=== PATIENT | male | born 1940 | race Caucasian/White ===

== ENCOUNTER → 2017-03-22 | Outpatient (CLI) | payer OTHER, MEDICARE ==
[~2017-03-22] VITALS: Ht 177.8 cm; Wt 58.3 kg
[~2017-03-22] MED LIST: AVAPRO300 MG PO; CARDURA4 MG PO; CENTRUM SILVER1 EAC2 PO; CLOBETASOL EMOL15 GM TP; EYE PROMISE RESTORE; IRON PO; KETOCONAZOLE60 GM TP; METFORMIN HCL500 MG PO; NORVASC10 MG PO; OSTEO BI-FLEX1 EAC1 PO; PLAVIX 75 MG TA75 M1 PO; PROTONIX40 M1 PO; VITAMIN D1000 UNI1 PO; VITAMINC500 PO
--- NOTE | ~2017-03-22 | HPC ---
[facility] [place] [place] [address] PAIN MANAGEMENT CONSULTATION Name: DAISY NOEL Room #: REG KERON Ureña#: [id number] Admission: 03/22/17 Attend Phys: Thor Degroot DO Discharge: Date of : 39 Report #: [id number] THIS REPORT FOR: //name// CC: YADIRA Degroot The patient is a pleasant 76-year-old gentleman typically treated for lumbar radiculopathy with transforaminal epidural injection at L4-L5 on the left. He had a single injection in August with 80% relief; had injection in December again with significant improvement, per the patient 75% relief for 6 weeks with gradual return of symptoms. He is getting ready to travel to [place]. He spends majority of the summer in [place]. He notes pain is continuing 4-10, low back, left buttock and thigh. PHYSICAL EXAMINATION: Modestly antalgic gait, positive straight leg raise on the left. Vital signs stable. Long discussion with the patient today about therapeutic options. He is loathe to take any opiate analgesics. He does have narrowing at L4-L5 down to about 7 mm on a quite dated MRI from 2006. After discussion today, we elected to proceed with left L4-L5 transforaminal epidural injection today. I will see him back in the fall when he returns from [place] if and when symptoms recur. We will get an MRI of the lumbar spine and at least get a surgical opinion at that time. ASSESSMENT: Symptomatic lumbar radiculopathy. PROCEDURE NOTE: Left L4-L5 transforaminal epidural injection under fluoroscopy. The patient has been off Plavix for 7 days. The patient is to resume Plavix tomorrow. PROCEDURE NOTE: After both written and informed consent was obtained including risk of spinal cord damage, infection, increased pain and paralysis, the patient agreed to proceed. The patient was taken to the fluoroscopy suite, placed in a prone position with appropriate abdominal bolstering. After sterile prep with ChloraPrep and sterile drape, a skin wheal with 1% Xylocaine was raised. A 22 gauge 4-1/2 inch epidural Tuohy needle was inserted. From an oblique approach into the posterior-superior aspect of the left L4-L5 neural foramen with continuous pressure on the glass syringe plunger for loss of resistance. Glass syringe was filled with 2 cc of 0.1 Xylocaine. The glass loss of resistance syringe was removed. A low volume extension tubing was connected, negative aspiration was accomplished for cerebrospinal fluid or blood. 1 mL of Omnipaque was injected which showed spread both within the epidural space and laterally along the nerve root. This was followed with 80 mg of triamcinolone plus 1 mL of 1.5% preservative-free Xylocaine. Needle was partially withdrawn, 0.5 mL of Xylocaine was injected to clear the needle and the needle was removed. The [address] [address] PAIN MANAGEMENT CONSULTATION Name: DAISY NOEL Room #: REG KERON Ureña#: [id number] Admission: 03/22/17 Attend Phys: Thor Degroot DO Discharge: Date of : 39 Report #: [id number] was cleansed, band-aid was applied. The patient was allowed to ambulate to the recovery room, discharged in good and stable condition. By: [id number] Thor Degroot DO /fabián
[2017-03-22 09:26] VITALS: BP 144/69
== END ==
LOC: PAIN 02-15 14:30
DX: M54.16 Radiculopathy, lumbar region (principal); I10 Essential (primary) hypertension; F17.210 Nicotine dependence, cigarettes, uncomplicated

== ENCOUNTER → 2020-10-08 | Outpatient (CLI) | payer OTHER, MEDICARE ==
[~2020-10-08] VITALS: Ht 152.4 cm; Wt 62.6 kg
[~2020-10-08] MED LIST changes: +CARVEDILOL12.5 MG PO; +LIPITOR 40 MG T40 M1 PO
--- NOTE | ~2020-10-08 | HPC ---
[facility] [address] [place] [address] PAIN MANAGEMENT CONSULTATION Name: DAISY NOEL Room #: REG [facility]pt[facility]eepti[facility] [id number] Admission: 10/08/20 Attend Phys: Ba Degroot DO Discharge: Date of : 39 Report #: [id number] THIS REPORT FOR: cc: OMAR FERREIRA Physician not on staff Ba Degroot DO ~ CC: Ba Degroot Physician staff Keesha FERREIRA DATE OF SERVICE: 10/08/2020 REFERRING PHYSICIAN: Keesha Nicholas MD CHIEF COMPLAINT: Low back pain, bilateral buttock and posterolateral thigh pain. HISTORY OF PRESENT ILLNESS: As you know, the patient is a pleasant 80-year-old male who reports acute onset of low back pain and bilateral buttock and posterolateral thigh pain that presented on 01/21/2020. The patient states he was in his normal state of health when the pain began and has progressed. He has trialled vfyj-jfj-viejure medications including ibuprofen, naproxen and topical agents, all of which have not provided much in the way of improvement. He discussed his case further with his primary care physician who had him undergo MRI of the lumbar spine, which showed severe central canal stenosis at multiple levels. He was referred to our service to discuss interventional treatment options. He has seen Neurosurgery and they have advised surgical approach. He is hopeful that he can gain some improvement in symptoms with more conservative treatment before we look towards full fusion at multiple levels. The patient indicates today pain is continuous, steady and constant. He describes the pain as aching, stabbing and numbness and tingling. Places current pain score 5/10, daily average of 5-7/10, worst pain has been is 7-8/10. The patient states that virtually all activities exacerbate symptoms. His pain is improved with sitting down. He has been referred to our clinic to discuss treatment options for lumbar radiculopathy secondary to severe central canal stenosis at multiple levels. PAST MEDICAL HISTORY: 1. Hypertension. 2. Dyslipidemia. 3. Gastroesophageal reflux disease. 4. History of scarlet fever. 5. Diabetes mellitus type 2. 6. Chronic anemia. [facility] [address] [place] [address] PAIN MANAGEMENT CONSULTATION Name: DAISY NOEL Room #: REG CL Niranjan#: [id number] Admission: 10/08/20 Attend Phys: Ba Degroot DO Discharge: Date of : 39 Report #: [id number] 7. Stage 3 chronic kidney disease. 8. Degenerative joint disease. 9. Osteoarthritis. 10. History of skin cancers. 11. History of a transient ischemic attack requiring anticoagulation. PAST SURGICAL HISTORY: Total hip arthroplasty. SOCIAL HISTORY: The patient smokes 2 packs of tobacco per day. He has done so for 60 years. He denies IV or illicit drug use. Admits to 3 alcoholic beverages per week. He is retired, retired about 20 years ago, not receiving workmen's compensation nor is trying to obtain disability benefits. He is not in litigation in regards to pain, unaccompanied at today's visit. REVIEW OF SYSTEMS: Positive only for nocturia, history of transient ischemic attack, requiring chronic anticoagulation, non-insulin dependent diabetes, chronic low back pain and anemia. All other review of systems negative per 12-point review of systems other than those listed in history of present illness. Pain impact score 21/70, mild to moderate interference of daily activities secondary to pain. ALLERGIES: RANITIDINE. CURRENT MEDICATIONS: Amlodipine 10 mg per day, Cardura 4 mg once a day, pantoprazole 40 mg per day, clobetasol ointment apply topically, ketoconazole cream apply topically, multivitamin 1 tab per day, glucosamine chondroitin 1 tab per day, ascorbic acid 500 mg once a day, cholecalciferol 1000 units once a day, iron supplementation 65 mg b.i.d., carvedilol 12.5 mg twice a day, Lipitor 40 mg once a day. IMAGING: MRI lumbar spine shows severe central canal stenosis at 2 levels L3-L4 and what appears to be L4-L5. There is significant arthritic changes throughout the lumbar spine, neural foraminal stenosis noted at multiple levels. PQRS: The patient has known arthritic changes of the cervical spine, lumbar spine, bilateral hips, and bilateral hands. No rheumatoid arthritis. He is placing current pain score at 5-7/10. He is not a fall risk, has not had a fall in last 3 months. He is on blood thinners in the form of Plavix and has continued the medication today. He is treated for hypertension. He is not on chronic opioids, has a moderate opioid addiction potential based on our assessment tool and he has continued 2 pack a day smoking. Pain impact 21/70, cwxu-iu-ikbdrwim interference of daily activities secondary to pain. PHYSICAL EXAMINATION: [facility] [address] [place] [address] PAIN MANAGEMENT CONSULTATION Name: DAISY NOEL Room #: REG KERON Ureña#: [id number] Admission: 10/08/20 Attend Phys: Ba Degroot DO Discharge: Date of : 39 Report #: [id number] VITAL SIGNS: Blood pressure 122/67, pulse 63, respiratory rate 16 and unlabored. The patient is 98% on room air. Height 5 feet 11 inches tall, weight 138 pounds and BMI calculated 27.0. GENERAL: Well-developed, well-nourished 80-year-old male who appears his stated age, smells strongly of tobacco smoke, placing current pain score at 5-7/10. HEENT: Normocephalic, atraumatic. Pupils equal, round and reactive. NEUROLOGIC: Speech is fluent. The patient deemed a fair historian. LUNGS: Decreased breath sounds bilaterally. There is prolonged expiratory phase. There is wheezing noted in the bases with expiration. CARDIOVASCULAR: Regular. No appreciable gallop, no rub. ABDOMEN: Soft. EXTREMITIES: Show mild clubbing, no cyanosis, no edema. MUSCULOSKELETAL: Lower extremity strength appears symmetrical 5/5, intact to light touch from L1 through S2 dermatomes. Seated straight leg raising negative. Supine straight leg raising positive. Vanita's test is negative. Modified Gaenslen's positive for axial low back pain. Ankle clonus negative. Babinski is negative. Gait is wide based and slow, but symmetrical. Lumbar provocation testing is met with increasing pain, specifically with rotation and lateral flexion. Deep tendon reflexes are diminished, but symmetrical at patella and Achilles. ASSESSMENT: 1. Severe central canal stenosis of lumbar spine. 2. Chronic lumbar radiculopathy. 3. Neural foraminal stenosis of the lumbar spine. 4. Displacement of lumbar intervertebral disk with radiculopathy. 5. Lumbosacral spondylosis with radiculopathy. 6. Facet arthropathy of the lumbar spine. 7. Severe tobacco habituation. 8. Chronic intractable pain. PLAN: 1. The patient based on today's physical exam and history he provides, the descriptors he uses in regards to pain as well as the location of symptoms appears to be suffering from central canal stenosis of lumbar spine. This is confirmed with recent imaging, which shows 2 levels of central canal stenosis. The patient has been seen by Neurosurgery and advised surgical options that are likely going to be necessary. He is requested to trial conservative treatment options initially, if these are unsuccessful he wishes to move forward with surgery. He has been referred to our clinic to undergo lumbar epidural injections under fluoroscopic guidance in hopes of improving pain. We have taken the time to discuss with the patient the findings of his MRI and correlated those findings to his current symptoms. After that discussion, we conversed about the treatment options that are available, so that the patient has a full understanding of his treatment possibilities. We discussed [address] [address] PAIN MANAGEMENT CONSULTATION Name: DAISY NOEL Room #: REG KERON Ureña#: [id number] Admission: 10/08/20 Attend Phys: Ba Degroot DO Discharge: Date of : 39 Report #: [id number] medication management with suggestions of treatment provided by the primary care physician. Those treatment options would include neuropathic medications like nortriptyline, amitriptyline, Cymbalta, Lyrica or gabapentin along with a possible dose opioid for pain control as the patient cannot take nonsteroidal anti-inflammatories due to his concurrent use of Plavix. We discussed lumbar epidural injections under fluoroscopic guidance for which the patient was referred to our clinic. We also discussed spinal cord stimulator as an option of treatment that will provide some improvement in symptoms, but ultimately the patient would have to undergo surgery, which he has already discussed with another physician. After reviewing the risks and benefits of all proposed treatment options, the patient chose to return to undergo lumbar lordosis. 2. The patient will need to receive clearance to come off his Plavix, so he can undergo a lumbar epidural injection. He will have to be off the Plavix based on [facility] guidelines for 7 days. We will come off this medication if possible and we will see him back in 1 week to undergo a lumbar epidural injection. We have made him a tentative appointment for next Wednesday. 3. We wish to thank the referring physician for the opportunity to see this patient in consultation. We will keep you apprised of response to treatment as we address his central canal stenosis and chronic lumbar radicular pain. We are hopeful the patient will see benefit with the epidural injection. We will keep you apprised of his treatment and response. Again, we wish to thank you for the opportunity to see the patient in consultation. By: [id number] Ba Degroot DO /nt
[2020-10-08 09:35] VITALS: BP 122/67
== END ==
LOC: PAIN 06:46
PROVIDERS: ATTEND Anesthesiology Pain Medicine
DX: M51.16 Intervertebral disc disorders with radiculopathy, lumbar region (principal); M47.27 Other spondylosis with radiculopathy, lumbosacral region; M48.061 Spinal stenosis, lumbar region without neurogenic claudication; M79.652 Pain in left thigh; M79.651 Pain in right thigh; G89.29 Other chronic pain; M19.90 Unspecified osteoarthritis, unspecified site; I10 Essential (primary) hypertension; K21.9 Gastro-esophageal reflux disease without esophagitis; E11.22 Type 2 diabetes mellitus with diabetic chronic kidney disease; N18.30 Chronic kidney disease, stage 3 unspecified; D64.89 Other specified anemias; Z72.0 Tobacco use; Z79.899 Other long term (current) drug therapy

== ENCOUNTER → 2020-10-15 | Outpatient (CLI) | payer OTHER, MEDICARE ==
[~2020-10-15] VITALS: Ht 180.3 cm; Wt 61.9 kg
[~2020-10-15] MED LIST changes: +PLAVIX 75 MG TA75 MG PO
[2020-10-15 10:40] VITALS: BP 127/56
--- NOTE | 2020-10-15 10:45 | NUR ---
Pain Clinic Assessment: 1. History of Osteoarthritis: NECK AND BACK History of Rheumatoid Arthritis: Not Applicable 2. Height: 5 ft. 11 in. 180.3 cm. Weight: 136.4 lb. oz. 61.871 kg. Patient's BMI: 19.0 3. Vital Signs: BP: 127/56 Pulse: 70 Resp: 16 Temp: 02 Sat: 97 ECG Mon: 4. Pain Intensity: 4 5. Fall Risk: Dizziness: N Needs help standing or walking: N Fallen in the last 3 months: N Fall risk comments: 6. Patient on Blood Thinner: Clopidogrel Bisulf(Plavix 7. History of Hypertension: Y 8. Opioid Therapy greater than 6 weeks: N Opiate Contract Signed: 9. Risk Assessment Tool Provided: low-0 10. Functional Assessment Tool: 11. Recreational Drug Use: Never Drug Type: Tobacco Use: Current Every Day Smoker Tobacco Type: Amount or Packs/day: How Many Years: Alcohol Use: Yes Frequency: Quant:
--- NOTE | 2020-10-16 11:46 | HPC ---
[facility] [place] [address] PAIN MANAGEMENT CONSULTATION Name: DAISY NOEL Georgina Room #: REG [facility]#: [id number] Admission: 10/15/20 Attend Phys: Ba Degroot DO Discharge: Date of : 39 Report #: [id number] THIS REPORT FOR: cc: OMAR FERREIAR Physician not on staff Ba Degroot DO ~ DATE OF SERVICE: 10/15/2020 REFERRING PHYSICIAN: Dr. Keesha Nicholas. CHIEF COMPLAINT: Low back pain, bilateral buttock and posterolateral thigh pain. HISTORY OF PRESENT ILLNESS: As you know, the patient is a pleasant 80-year-old male who reported acute onset of low back pain, bilateral buttock pain, posterolateral thigh pain who presented on 01/21/2020. The patient states he was in normal state of health prior to this when his pain returned. He was seen in consultation on 10/08/2020 diagnosed with severe central canal stenosis leading to lumbar radiculopathy and established today's appointment to undergo a lumbar epidural injection as he needed to be off his Plavix for 7 days. He has received authorization to come off the Plavix and has discontinued the medication in preparation for today's procedure. It has been off the medication for the past 7 days. The patient is placing pain today at approximately 4/10. ALLERGIES: RANITIDINE. CURRENT MEDICATIONS: Amlodipine, Cardura, pantoprazole, clobetasol, ketoconazole, multivitamin, glucosamine chondroitin, ascorbic acid, cholecalciferol, iron supplementation, carvedilol, Lipitor. SOCIAL HISTORY: The patient smokes 2 packs of tobacco per day and has done so for 60 years. Denies IV or illicit drug use. Admits to 3 alcoholic beverages per week. He is retired, retired about 20 years ago, not receiving workmen's compensation, unaccompanied today. IMAGING STUDIES: No new imaging available. PQRS: The patient has known arthritic changes of the cervical spine, lumbar spine, bilateral hips and hands. No rheumatoid arthritis. He is placing pain intensity 4/10, not a fall risk, has not had a fall in last 3 months. He is on anticoagulants in the form of Plavix, but this has been discontinued for the past 7 days in preparation for today's procedure. He is treated for hypertension. He is not on chronic opioids and based on our assessment tool, he has a low opioid addiction potential. Pain impact , aidy-cp-oofbcoyq interference of daily [place] [address] PAIN MANAGEMENT CONSULTATION Name: DAISY NOEL [facility] [id number] Admission: 10/15/20 Attend Phys: Ba Degroot DO Discharge: Date of : 39 Report #: [id number] PHYSICAL EXAMINATION: VITAL SIGNS: Blood pressure 127/56, pulse is 70, respiratory rate 16 and unlabored. The patient is 97% on room air. Height 5 feet 11 inches tall, weight 136.4 pounds, BMI calculated 19. GENERAL: Well-developed, well-nourished, well-hydrated, thin, 80-year-old male appearing stated age, smells strongly of tobacco smoke, placing current pain score 4/10. HEENT: Normocephalic and atraumatic. Pupils are round. Speech is fluent. EXTREMITIES: Show no clubbing, no cyanosis. No appreciable edema. MUSCULOSKELETAL: Lower extremity strength remains symmetrical 5/5. Intact to light touch from L1 through S2 dermatomes. Seated straight leg raising negative. Supine straight leg raising positive. Vanita's test is negative. ASSESSMENT: 1. Symptomatic lumbar radiculopathy. 2. Severe central canal stenosis of lumbar spine. 3. Neural foraminal stenosis of the lumbar spine. 4. Displacement of lumbar intervertebral disk with radiculopathy. 5. Lumbosacral spondylosis with radiculopathy. 6. Facet arthropathy of the lumbar spine. 7. Severe tobacco habituation. 8. Chronic intractable pain. PLAN: 1. The patient returns today in followup visit having discontinued his Plavix in preparation for a lumbar epidural injection under fluoroscopic guidance. The patient has been advised of the risks and the benefits of a lumbar epidural injection. These risks include but are not necessarily limited to; bleeding, bruising, infection, worsening pain, no relief of pain, temporary or permanent muscle weakness, temporary or permanent nerve damage, possible paralysis and . The patient states understood and wished to proceed. 2. No medication changes made at today's visit. The patient will restart his Plavix later today and continue the medication until our next visit. The patient will start that medication at about 3 today and continue his normal dosing as directed. 3. We will see the patient back in followup visit for possible next in the series of epidural injections. We will see him back on a p.r.n. basis as he has seen good benefit with previous epidural injections. We are hopeful to see similar improvement today. PROCEDURE NOTE DESCRIPTION OF PROCEDURE: L5-S1 left interlaminar epidural steroid injection under fluoroscopic guidance. [address] [address] PAIN MANAGEMENT CONSULTATION Name: DAISY NOEL Room #: REG [facility] [id number] Admission: 10/15/20 Attend Phys: Ba Degroot DO Discharge: Date of : 39 Report #: [id number] This is the first procedure of the second series that the patient is undergoing. After obtaining written consent, the patient was taken back to the fluoroscopy suite, placed in a prone position with pillow under the abdomen to decrease lumbar lordosis. The skin overlying the lumbosacral area was then prepped and draped in aseptic fashion. The L5-S1 vertebral interspace was then identified by AP fluoroscopy. The skin and subcutaneous tissue overlying the target site of injection was anesthetized with 3 mL 1% lidocaine. A(n) 20-gauge 3-1/2 inch Tuohy needle was then advanced under fluoroscopic guidance towards the epidural space using a left paramedian approach. The epidural space was identified using loss of resistance to air technique. After negative aspiration for heme or cerebrospinal fluid, a total of 1 mL of Omnipaque was injected. A lumbar epidurogram was confirmed using both AP and lateral fluoroscopy. After negative aspiration for heme or cerebrospinal fluid, 5 mL of a solution containing 2 mL 40 mg per mL, 80 mg total of triamcinolone along with 3 mL of lidocaine 1% was injected in increments. Contrast spread was noted posterior epidural space. The needle was then retracted approximately half way and needle tract flushed with 1 mL of 1% lidocaine. Needle was then removed. There were no apparent sensory or motor deficits in the lower extremity following the procedure. A sterile bandage was placed over the injection site. The heart rate, pulse, oximetry and blood pressure were continuously monitored after the procedure. There were no apparent complications. The patient tolerated the procedure well and was carefully escorted to the recovery room in stable condition. There were no apparent complications. After meeting discharge criteria, the patient was then discharged home. <ELECTRONICALLY SIGNED> By: Ba Degroot DO 10/16/20 [id number] Ba Degroot DO /nt
== END | disposition home or self-care (01) ==
LOC: PAIN 06:55
PROVIDERS: ATTEND Anesthesiology Pain Medicine
DX: M51.16 Intervertebral disc disorders with radiculopathy, lumbar region (principal); M47.27 Other spondylosis with radiculopathy, lumbosacral region; M47.26 Other spondylosis with radiculopathy, lumbar region; M48.061 Spinal stenosis, lumbar region without neurogenic claudication; G89.29 Other chronic pain; I10 Essential (primary) hypertension; M19.90 Unspecified osteoarthritis, unspecified site; F17.210 Nicotine dependence, cigarettes, uncomplicated; Z98.890 Other specified postprocedural states; Z79.899 Other long term (current) drug therapy

== ENCOUNTER → 2021-01-07 | Outpatient (CLI) | payer OTHER, MEDICARE ==
[~2021-01-07] VITALS: Ht 180.3 cm; Wt 62.9 kg
[2021-01-07 12:43] VITALS: BP 131/58
--- NOTE | 2021-01-07 12:51 | NUR ---
Pain Clinic Assessment: 1. History of Osteoarthritis: NECK AND BACK History of Rheumatoid Arthritis: Not Applicable 2. Height: 5 ft. 11 in. 180.3 cm. Weight: 138.6 lb. oz. 62.868 kg. Patient's BMI: 19.3 3. Vital Signs: BP: 131/58 Pulse: 65 Resp: 16 Temp: 02 Sat: 98 ECG Mon: 4. Pain Intensity: 8 5. Fall Risk: Dizziness: N Needs help standing or walking: N Fallen in the last 3 months: N Fall risk comments: 6. Patient on Blood Thinner: Clopidogrel Bisulf(Plavix 7. History of Hypertension: Y 8. Opioid Therapy greater than 6 weeks: N Opiate Contract Signed: 9. Risk Assessment Tool Provided: low-0 10. Functional Assessment Tool: 11. Recreational Drug Use: Never Drug Type: Tobacco Use: Current Every Day Smoker Tobacco Type: Cigarettes Amount or Packs/day: 2 PACKS How Many Years: Alcohol Use: Yes Frequency: Monthly Quant: 1
--- NOTE | 2021-01-08 11:42 | HPC ---
[facility] [address] [address] PAIN MANAGEMENT CONSULTATION Name: DAISY NOEL Georgina [facility] [id number] Admission: 01/07/21 Attend Phys: Ba Degroot DO Discharge: Date of : 39 Report #: [id number] THIS REPORT FOR: cc: ENRICO VILLANUEVA Physician not on staff Ba Degroot DO ~ DATE OF SERVICE: 01/07/2021 REFERRING PHYSICIAN: Dr. Enrico Villanueva. CHIEF COMPLAINT: Low back pain, bilateral lower extremity pain. HISTORY OF PRESENT ILLNESS: As you know, the patient is a very pleasant 80-year-old male returning in followup visit to undergo next in the series of lumbar epidural injections. He reports with the previous epidural injection an improvement in symptoms of greater than 60%. This lasted until 12/23/2020 where he had recurrence of symptoms that began initially as a low ache and then progressed over the next couple of days. He returns today in followup visit to undergo the second in series of lumbar epidural injections to address recurrent lumbar radicular pain that began 01/21/2020. The patient continues to smoke at least 2 packs of tobacco per day. He has had no changes in his medication management. No known injury or trauma. He has stopped his Plavix 7 days ago in preparation for today's epidural injection. ALLERGIES: RANITIDINE. CURRENT MEDICATIONS: See chart. SOCIAL HISTORY: The patient continues to smoke 2 packs of tobacco per day and has done so for 60 years. Denies IV or illicit drug use. Admits to 3 alcoholic beverages per week. Retired, retired about 20 years ago; unaccompanied today. IMAGING: No new imaging available. PQRS: The patient has known arthritic changes of the cervical spine, lumbar spine, bilateral hips and hands. No rheumatoid arthritis. He is placing current pain score at 8/10. He is not a fall risk, has not had a fall in last 3 months. He is on the blood thinner in the form of Plavix, but discontinued the medication 7 days ago in preparation for today's procedure. He is treated for hypertension. He is not on chronic opioids, has a moderate opioid addiction potential based on our assessment tool and is continued smoking 2 packs of tobacco per day. He places pain impact at 21/70, mild interference with daily activities secondary to pain. PHYSICAL EXAMINATION: VITAL SIGNS: Blood pressure 131/58, pulse 65, respiratory rate 16 and [facility] [address] [place] [address] PAIN MANAGEMENT CONSULTATION Name: DAISY NOEL Room #: REG [facility].#: [id number] Admission: 01/07/21 Attend Phys: Ba Degroot DO Discharge: Date of : 39 Report #: [id number] unlabored. The patient is 98% on room air. Height 5 feet 11 inches tall, weight 138.6 pounds, BMI calculated 19.3. GENERAL: Well-developed, well-nourished 80-year-old male, smell strongly of tobacco smoke, placing current pain score 8/10. HEENT: Normocephalic, atraumatic. The patient is wearing a mask in compliance with COVID-19 regulations. EXTREMITIES: Show no clubbing, no cyanosis, though there is staining of his fingers bilaterally due to tobacco use. Lower extremity strength equal and symmetrical 5/5, intact to light touch from L1 through S2 dermatomes. Seated straight leg raising negative. Supine straight leg raising positive. ASSESSMENT: 1. Symptomatic lumbar radiculopathy. 2. Severe central canal stenosis of lumbar spine. 3. Neural foraminal stenosis of the lumbar spine. 4. Displacement of lumbar intervertebral disk with radiculopathy. 5. Lumbosacral spondylosis with radiculopathy. 6. Facet arthropathy of the lumbar spine. 7. Severe tobacco habituation. 8. Chronic intractable pain. PLAN: 1. The patient returns today in followup visit requesting to undergo lumbar epidural injection under fluoroscopic guidance. He has stopped his Plavix 7 days ago in preparation for today's procedure. The patient reports about a 60% or greater improvement in overall pain with the epidural injection provided at our last visit. This lasted until 12/23/2020 where the patient began to experience recurrence of pain. He is now placing his pain score at about 8/10. He returns today in followup visit to undergo epidural injection. He has been advised risks and benefits of procedure, states understood and wished to proceed. 2. The patient and I had very long discussion today about how smoking directly contributes to the chronic pain. We discussed the descending pain pathway and how the nicotinic receptors were activated by chronic nicotine use and thus cause its down regulation and inability to control pain effectively through the endogenous pathways. The patient is aware of this, but is unwilling to make any changes in his social activities. We will discuss this again at followup visit as it directly correlates to his ongoing pain. 3. No medication changes made at today's visit. The patient will continue current medical therapy as prior prescribed. 4. We will see the patient back in followup visit on an as needed basis for the next in the series of lumbar epidural injections. We are hopeful the patient will once again see good and prolonged benefit with the epidural injection. PROCEDURE NOTE [address] [address] PAIN MANAGEMENT CONSULTATION Name: DAISY NOEL Room #: REG [facility]#: [id number] Admission: 01/07/21 Attend Phys: Ba Degroot DO Discharge: Date of : 39 Report #: [id number] DESCRIPTION OF PROCEDURE: L5-S1 left paramedian epidural steroid injection under fluoroscopic guidance. After obtaining written consent, the patient was taken back to fluoroscopy suite, placed in prone position with pillow under abdomen to decrease lumbar lordosis. Skin overlying lumbosacral area prepped and draped in aseptic fashion. The L5-S1 vertebral interspace identified by AP fluoroscopy. Skin and subcutaneous tissue overlying target site injection anesthetized with 3 mL of 1% lidocaine. A 20-gauge 3-1/2 inch Tuohy needle advanced under fluoroscopic guidance towards the epidural space using left paramedian approach. Epidural space identified using loss of resistance to air technique. After negative aspiration for heme or cerebrospinal fluid, 1 mL of Omnipaque injected. Lumbar epidurogram confirmed using both AP and lateral fluoroscopy. After negative aspiration for heme or cerebrospinal fluid, 5 mL of a solution containing 2 mL 40 mg per mL, 80 mg total triamcinolone along with 3 mL of lidocaine 1% injected slowly. Needle retracted longterm, flushed with 1 mL of 1% lidocaine and then removed. Sterile bandage placed over injection site. No new motor deficits present in lower extremity following procedure. The patient tolerated procedure well, carefully escorted to recovery room in stable condition. No apparent complications. After meeting discharge criteria, the patient discharged home. <ELECTRONICALLY SIGNED> By: Ba Degroot DO 01/08/21 1142 [id number] 1716 Ba Degroot DO /nt
== END | disposition home or self-care (01) ==
LOC: PAIN 07:04
PROVIDERS: ATTEND Anesthesiology Pain Medicine
DX: M51.16 Intervertebral disc disorders with radiculopathy, lumbar region (principal); M48.061 Spinal stenosis, lumbar region without neurogenic claudication; M47.26 Other spondylosis with radiculopathy, lumbar region; M47.27 Other spondylosis with radiculopathy, lumbosacral region; G89.29 Other chronic pain; M54.5 Low back pain; I10 Essential (primary) hypertension; M19.90 Unspecified osteoarthritis, unspecified site; F17.210 Nicotine dependence, cigarettes, uncomplicated; Z98.890 Other specified postprocedural states; Z79.899 Other long term (current) drug therapy; Z88.8 Allergy status to other drugs, medicaments and biological substances

== ENCOUNTER → 2021-04-09 | Outpatient (CLI) | payer OTHER, MEDICARE ==
[~2021-04-09] VITALS: Ht 180.3 cm; Wt 60.7 kg
[2021-04-09 10:55] VITALS: BP 101/57
--- NOTE | 2021-04-09 11:19 | NUR ---
Pain Clinic Assessment: 1. History of Osteoarthritis: NECK AND BACK History of Rheumatoid Arthritis: Not Applicable 2. Height: 5 ft. 11 in. 180.3 cm. Weight: 133.8 lb. oz. 60.691 kg. Patient's BMI: 18.7 3. Vital Signs: BP: 101/57 Pulse: 63 Resp: 20 Temp: 02 Sat: 99 ECG Mon: 4. Pain Intensity: 3 TO 6 WITH WALKING 5. Fall Risk: Dizziness: N Needs help standing or walking: N Fallen in the last 3 months: N Fall risk comments: 6. Patient on Blood Thinner: PN 7. History of Hypertension: Y 8. Opioid Therapy greater than 6 weeks: N Opiate Contract Signed: 9. Risk Assessment Tool Provided: low-0 10. Functional Assessment Tool: 11. Recreational Drug Use: Never Drug Type: Tobacco Use: Current Every Day Smoker Tobacco Type: Amount or Packs/day: 2 PKS How Many Years: Alcohol Use: Yes Frequency: Special Occasions Quant: 1
--- NOTE | 2021-04-16 08:22 | HPC ---
[facility] [address] [place] [address] PAIN MANAGEMENT CONSULTATION Name: DAISY NOEL Georgina Room #: REG [facility]#: [id number] Admission: 04/09/21 Attend Phys: Ba Degroot DO Discharge: Date of : 39 Report #: [id number] THIS REPORT FOR: cc: OMAR FERREIRA Physician not on staff Ba Degroot DO ~ DOC #: [id number] Ba Degroot DO DATE OF SERVICE: 04/09/2021 CHIEF COMPLAINT: Low back pain, bilateral lower extremity pain. HISTORY OF PRESENT ILLNESS: As you know, the patient is a very pleasant 80-year-old male returning in followup visit to undergo lumbar epidural injection under fluoroscopic guidance. The patient is placing pain anywhere from 3-6/10 depending on activity. Describes the pain as aching, constant, shooting, sharp, exacerbated with walking, improves with sitting and epidural injections. Most recent epidural injection gave 75% improvement in overall pain lasting for nearly 2 months with a slow and progressive return of symptoms. He denies injury or trauma. Returning today to undergo next in the series of epidural injections. ALLERGIES: RANITIDINE. CURRENT MEDICATIONS: See chart. SOCIAL HISTORY: The patient continues to smoke, 2 packs of tobacco per day and has done so for 60 years. Denies IV or illicit drug use. Admits to 3 alcoholic beverages per week. He is retired, retired about 20 years ago, unaccompanied today. IMAGING: No new imaging available. PQRS: The patient has known arthritic changes of the cervical spine, lumbar spine, bilateral hips and hands. No rheumatoid arthritis. He is placing current pain score at 3-6/10. He is not a fall risk, has not had a fall in last 3 months. He is not on blood thinners, but is treated for hypertension. He is on no opioids, has a low opioid addiction potential, though he smokes 2 packs of tobacco per day. He is reporting functional pain impact is 21/70, mild to moderate interference of daily activities secondary to symptoms. PHYSICAL EXAMINATION: VITAL SIGNS: Blood pressure 101/57, pulse is 63, respiratory rate 20, unlabored. The patient 99% on room air. Height 5 feet 11 inches tall, weight 133.8 pounds, BMI calculated 18.7. GENERAL: Well-developed, well-nourished, well-hydrated 80-year-old male, smell strongly of tobacco smoke, placing current pain score at 3-6/10. [address] [address] PAIN MANAGEMENT CONSULTATION Name: DAISY NOEL Room #: REG [facility]#: [id number] Admission: 04/09/21 Attend Phys: Ba Degroot DO Discharge: Date of : 39 Report #: [id number] HEENT: Normocephalic, atraumatic. Pupils equal, round and responsive. Speech is fluent. He is wearing a mask in compliance with COVID-19 regulations. EXTREMITIES: Show no clubbing, no cyanosis, though there is staining of the fingers bilaterally due to tobacco use. MUSCULOSKELETAL: Lower extremity strength equal and symmetrical 5/5 intact to light touch from L1 through S2 dermatomes. Seated straight leg raising negative. Supine straight leg raising positive. There is well-healed surgical scar from surgery one month ago. ASSESSMENT: 1. Symptomatic lumbar radiculopathy. 2. Severe central canal stenosis of lumbar spine. 3. Neural foraminal stenosis of lumbar spine. 4. Displacement of lumbar intervertebral disk with radiculopathy. 5. Lumbosacral spondylosis with radiculopathy. 6. Facet arthropathy, lumbar spine. 7. Severe tobacco habituation. 8. Chronic intractable pain. PLAN: 1. The patient returns today in followup visit having discontinued his anticoagulant in preparation for an epidural injection under fluoroscopic guidance. The patient has undergone surgery just one month ago to address his lumbar radicular symptoms. He has been cleared by the neurosurgeon to undergo an epidural injection as he is not seeing benefit from the surgical standpoint. There was concern that the patient may have some inflammatory process that may be contributing to his ongoing pain complaint. He returns requesting an injection in hopes of improving pain today. The patient has been advised risks and benefits of lumbar epidural injections, specifically after surgery. These risks include but are not necessarily limited to bleeding, bruising, infection, worsening pain, no relief of pain, also risk of temporary or permanent, muscle weakness, temporary or permanent nerve damage, possible paralysis, allergic reaction of medication, reduced healing and dehiscence of the surgical incision and . The patient states understood and wished to proceed. 2. No medication changes made at today's visit. The patient will continue current medical therapy as prior prescribed. 3. The patient had a very long discussion about smoking cessation. I do feel that his smoking is contributing significantly to his chronic pain perception that he needs to reduce this activity. We have offered the patient solutions for smoking cessation. He is unwilling to avail himself of the solutions. 4. We will see the patient back in followup visit on an as needed basis to undergo next in the series of epidural injections if necessary. DESCRIPTION OF PROCEDURE: L5-S1 interlaminar epidural steroid injection under fluoroscopic guidance. [address] [address] PAIN MANAGEMENT CONSULTATION Name: DAISY NOEL Room #: REG [facility]#: [id number] Admission: 04/09/21 Attend Phys: Ba Degroot DO Discharge: Date of : 39 Report #: [id number] After obtaining written consent, the patient was taken back to fluoroscopy suite, placed in prone position with pillow under abdomen to decrease lumbar lordosis. Skin overlying lumbosacral area prepped and draped in aseptic fashion. The L5-S1 vertebral interspace was identified by AP fluoroscopy. Skin and subcutaneous tissue overlying target site injection anesthetized with 3 mL 1% lidocaine. A 20 gauge 3-1/2 inch Tuohy needle advanced under fluoroscopic guidance towards the epidural space using a midline approach. Epidural space identified using loss of resistance to air technique. After negative aspiration for heme or cerebrospinal fluid, 1 mL of Omnipaque injected. Lumbar epidurogram confirmed using both AP and lateral fluoroscopy. After negative aspiration for heme or cerebrospinal fluid, 5 mL solution containing 2 mL 40 mg per mL 80 mg total triamcinolone along with 3 mL of lidocaine, 1% injected slowly. Needle retracted chcf flushed with 1 mL of 1% lidocaine, then removed. Sterile bandage placed over injection site. No new motor deficits present in lower extremities, following procedure. The patient tolerated the procedure well, carefully escorted to recovery room in stable condition. No apparent complications. After meeting discharge criteria, the patient discharged home. Ba Degroot DO JEJ/KDA <ELECTRONICALLY SIGNED> By: Ba Degroot DO 04/16/21 0822 1346 2310 Ba Degroot DO /nt
== END | disposition home or self-care (01) ==
LOC: PAIN 10:30
PROVIDERS: ATTEND Anesthesiology Pain Medicine
DX: M51.16 Intervertebral disc disorders with radiculopathy, lumbar region (principal); M47.27 Other spondylosis with radiculopathy, lumbosacral region; M47.26 Other spondylosis with radiculopathy, lumbar region; M48.061 Spinal stenosis, lumbar region without neurogenic claudication; I10 Essential (primary) hypertension; M19.90 Unspecified osteoarthritis, unspecified site; F17.210 Nicotine dependence, cigarettes, uncomplicated; Z98.890 Other specified postprocedural states; Z79.899 Other long term (current) drug therapy; Z88.8 Allergy status to other drugs, medicaments and biological substances

== ENCOUNTER → 2021-05-14 | Outpatient (CLI) | payer OTHER, MEDICARE ==
[~2021-05-14] VITALS: Ht 180.3 cm; Wt 54.3 kg
[~2021-05-14] MED LIST changes: +HYDROCODON-ACE1 EAC7 PO
--- NOTE | ~2021-05-14 | HPC ---
[facility] [place] [address] PAIN MANAGEMENT CONSULTATION Name: DAISY NOEL Room #: REG [facility] [id number] Admission: 05/14/21 Attend Phys: Ba Degroot DO Discharge: Date of : 39 Report #: [id number] THIS REPORT FOR: cc: OMAR FERREIRA Physician not on staff Ba Degroot DO ~ DOC #: [id number] cc: Keesha Nicholas MD, [facility] Ba Degroot DO DATE OF SERVICE: 05/14/2021 CHIEF COMPLAINT: Low back pain, bilateral lower extremity pain. HISTORY OF PRESENT ILLNESS: As you know, the patient is an 80-year-old male returning in followup visit with continued and recurrent lumbar radiculopathy. The patient has sought evaluation through orthopedic spine surgery, who has advised the patient not to look toward surgical options at this time. States he was not a candidate to undergo extensive surgery in the lumbar area. He has been referred back to our clinic to trial an epidural injection under fluoroscopic guidance in hopes of improving pain. The patient indicates pain today at a level of 6/10. States his pain is constant and aching in sensation, exacerbated with walking and sitting. He returns today for a lumbar epidural injection under fluoroscopic guidance. ALLERGIES: RANITIDINE. CURRENT MEDICATIONS: Amlodipine, Cardura, pantoprazole, clobetasol, ketaconazole, multivitamins, glucosamine chondroitin, ascorbic acid, cholecalciferol, iron supplementation, carvedilol, atorvastatin, Plavix, and hydrocodone. SOCIAL HISTORY: The patient continues to smoke up to 2 packs of tobacco per day, has done so for 60+ years. Denies IV or illicit drug use. Admits to 3 alcoholic beverages per week. He is retired, retired about 20 years ago, unaccompanied today. IMAGING: No new imaging available. PQRS: The patient has known arthritic changes of the cervical spine, lumbar spine, bilateral hands, hips, and knees. No rheumatoid arthritis. He is placing his current pain score at 6/10. He is at fall risk, but has not had a fall in last 3 months. He is on Plavix, but discontinued medication 7 days ago in preparation for today's procedure. He is treated for hypertension. He is on opioids, has a low opioid addiction potential based on our assessment tool despite the fact that he has a 2-xuos-u-day smoking history consistent with addiction problems. Pain impact is 21/70, mild to moderate interference of [address] [address] PAIN MANAGEMENT CONSULTATION Name: DAISY NOEL Georgina Room #: REG [facility] Niranjan#: [id number] Admission: 05/14/21 Attend Phys: Ba Degroot DO Discharge: Date of : 39 Report #: [id number] daily activities secondary to pain. PHYSICAL EXAMINATION: VITAL SIGNS: Blood pressure 112/61, pulse 57, respiratory rate 20, unlabored. The patient 97% on room air. Height 5 feet 11 inches tall, weight 119.8 pounds, BMI calculated 16.7. GENERAL: Well-developed, well-nourished 80-year-old male, smells strongly of tobacco smoke, placing current pain score 6/10. HEENT: Normocephalic, atraumatic. Pupils are round. He is wearing a mask in compliance with COVID-19 regulations. EXTREMITIES: Show no clubbing, no cyanosis, staining of the fingers bilaterally due to tobacco use. There does not appear to be any edema. MUSCULOSKELETAL: Lower extremity strength is symmetrical again today 5/5, though there is some giveaway strength noted on the right with hip flexion, knee extension. Seated straight leg raising positive on the right, supine straight leg raising positive on the right. Well-healed surgical scar noted with continued granulation tissue. ASSESSMENT: 1. Symptomatic lumbar radiculopathy. 2. Severe central canal stenosis of lumbar spine. 3. Neural foraminal stenosis of lumbar spine. 4. Displacement of lumbar intervertebral disk with radiculopathy. 5. Lumbosacral spondylosis with radiculopathy. 6. Facet arthropathy of the lumbar spine. 7. Severe tobacco habituation. 8. Chronic intractable pain. PLAN: 1. The patient returns today in followup visit indicating that he has been advised at this point he is no longer a surgical candidate to look towards a fusion of the lumbar region. He would have to undergo extensive surgery at the L4-L5 and L5-S1 level diffuse and decompress the entire area. He has been advised to trial epidural injections in hopes of improving pain. He returns today requesting a lumbar epidural injection. He has discontinued his Plavix 7 days prior in preparation for this procedure. 2. The patient and I once again had a very long discussion about smoking cessation. The patient is not interested in discontinuing this activity. He states he has lived this long with smoking as much as he has and does not feel he needs to discontinue despite the fact that we have advised that it is exacerbating his chronic pain. We did offer treatment options, but the patient refused. 3. We will plan to see the patient back in followup visit on an as needed basis for an epidural injection. He will restart his Plavix this evening and continue Plavix as directed. [address] [place] [address] PAIN MANAGEMENT CONSULTATION Name: DAISY NOEL Room #: REG [facility]#: [id number] Admission: 05/14/21 Attend Phys: Ba Degroot DO Discharge: Date of : 39 Report #: [id number] PROCEDURE NOTE DESCRIPTION OF PROCEDURE: L5-S1 interlaminar epidural steroid injection under fluoroscopic guidance. After obtaining written consent, the patient was taken back to fluoroscopy suite, placed in prone position with pillow under abdomen to decrease lumbar lordosis. Skin overlying lumbosacral area prepped and draped in aseptic fashion. The lumbar intervertebral spaces were identified by AP fluoroscopy. Skin and subcutaneous tissue overlying target site injection anesthetized with 3 mL 1% lidocaine. A 20 gauge 3-1/2 inch Tuohy needle advanced under fluoroscopic guidance towards the epidural space using a parasagittal approach. Epidural space identified using loss of resistance to air technique. After negative aspiration for heme or cerebrospinal fluid, 1 mL of Omnipaque injected. Lumbar epidurogram confirmed using both AP and lateral fluoroscopy. After negative aspiration for heme or cerebrospinal fluid, 5 mL solution containing 2 mL 40 mg per mL 80 mg total triamcinolone along with 3 mL of lidocaine, 1% injected slowly. Needle retracted jail flushed with 1 mL of 1% lidocaine, then removed. Sterile bandage placed over injection site. No new motor deficits present in the lower extremity following procedure. The patient tolerated the procedure well, carefully escorted to recovery room in stable condition. No apparent complications. After meeting discharge criteria, the patient discharged home. DO ELI Mccollum/CONSTANTINO By: [id number] Ba Degroot DO /nt
[2021-05-14 10:31] VITALS: BP 112/61
== END | disposition home or self-care (01) ==
LOC: PAIN 07:06
PROVIDERS: ATTEND Anesthesiology Pain Medicine
DX: M51.16 Intervertebral disc disorders with radiculopathy, lumbar region (principal); M47.27 Other spondylosis with radiculopathy, lumbosacral region; M47.26 Other spondylosis with radiculopathy, lumbar region; M48.061 Spinal stenosis, lumbar region without neurogenic claudication; G89.29 Other chronic pain; F17.210 Nicotine dependence, cigarettes, uncomplicated; I10 Essential (primary) hypertension; M19.90 Unspecified osteoarthritis, unspecified site; Z98.890 Other specified postprocedural states; Z79.899 Other long term (current) drug therapy; Z88.8 Allergy status to other drugs, medicaments and biological substances

== ENCOUNTER → 2021-10-15 | Outpatient (CLI) | payer OTHER, MEDICARE ==
[~2021-10-15] VITALS: Ht 180.3 cm; Wt 60.1 kg
[2021-10-15 08:34] VITALS: BP 95/53
--- NOTE | 2021-10-15 08:39 | NUR ---
Pain Clinic Assessment: 1. History of Osteoarthritis: NECK AND BACK History of Rheumatoid Arthritis: Not Applicable 2. Height: 5 ft. 11 in. 180.3 cm. Weight: 132.4 lb. oz. 60.056 kg. Patient's BMI: 18.5 3. Vital Signs: BP: 95/53 Pulse: 67 Resp: 16 Temp: 02 Sat: 94 ECG Mon: 4. Pain Intensity: 4 5. Fall Risk: Dizziness: N Needs help standing or walking: N Fallen in the last 3 months: N Fall risk comments: 6. Patient on Blood Thinner: Clopidogrel Bisulf(Plavix 7. History of Hypertension: Y 8. Opioid Therapy greater than 6 weeks: N Opiate Contract Signed: 9. Risk Assessment Tool Provided: low-0 10. Functional Assessment Tool: 11. Recreational Drug Use: Never Drug Type: Tobacco Use: Current Every Day Smoker Tobacco Type: Cigarettes Amount or Packs/day: 2 PACKS How Many Years: Alcohol Use: No Frequency: Quant:
--- NOTE | 2021-10-21 08:44 | HPC ---
[facility] [place] [address] PAIN MANAGEMENT CONSULTATION Name: DAISY NOEL Georgina Room #: REG KERON HudsonFred#: [id number] Admission: 10/15/21 Attend Phys: Ba Degroot DO Discharge: Date of : 38 Report #: [id number] THIS REPORT FOR: cc: ENRICO VILLANUEVA Physician not on staff Ba Degroot DO ~ cc: Keesha Nicholas MD, Enrico Villanueva MD DATE OF SERVICE: 10/15/2021 REFERRING PHYSICIAN: Keesha Nicholas MD CHIEF COMPLAINT: Low back pain, right buttock and posterolateral thigh pain. HISTORY OF PRESENT ILLNESS: As you know, the patient is an 81-year-old male returning in followup visit with recurrent lumbar radiculopathy. The patient states his pain began spontaneously without inciting injury or trauma when he was upstairs in his home. He states that the pain was so disabling, he was unable to ambulate for 2 days. Pain remained intense and he was taken to the Emergency Department, evaluated and advised he is suffering from recurrent lumbar radiculopathy. He was advised at that hospitalization to remain for evaluation from Neurosurgery and Physical Therapy. He chose not to avail himself of their recommendations and left the hospital. He has returned today to our clinic to request treatment to address recurrent lumbar radiculopathy. He has stopped his Plavix 7 days ago in preparation for an epidural injection. He places his current pain score 4/10. The patient reports previous epidural injection provided improvement in symptoms of greater than 80%, lasting until this incident, which occurred just recently. He returns today for the next in the series of lumbar epidural injections. ALLERGIES: RANITIDINE. CURRENT MEDICATIONS: Amlodipine, Cardura, pantoprazole, clobetasol, ketoconazole, multivitamin, glucosamine and chondroitin, ascorbic acid, cholecalciferol, iron supplementation, carvedilol, atorvastatin, hydrocodone, and Plavix. SOCIAL HISTORY: The patient continues to smoke 2 packs of tobacco a day, has done so for 60+ years, equaling approximately [id number] history of smoking. Denies IV or illicit drug use. Admits to 3 alcohol beverages per week. He is retired, retired years ago, accompanied by his significant other who is present in the recovery room today. IMAGING: No new imaging available. PQRS: The patient has known arthritic changes of the cervical spine, lumbar spine, bilateral hands, hips, knees and lumbar spine [place] [address] PAIN MANAGEMENT CONSULTATION Name: DAISY NOEL Georgina Room #: REG CL Niranjan#: [id number] Admission: 10/15/21 Attend Phys: Ba Degroot DO Discharge: Date of : 39 Report #: [id number] rheumatoid arthritis. He is placing pain intensity today at 4/10. Not a fall risk, has not had a fall in last 3 months. He is on blood thinners in the form of Plavix, but has discontinued medication 7 days ago in preparation for the procedure. He is treated for hypertension. He is on chronic opioids, has a moderate opioid addiction based on our assessment tool and the fact he continues to smoke 2 packs of tobacco per day. He reports a functional capacity loss of 20/70, mild interference with daily activity. PHYSICAL EXAMINATION: VITAL SIGNS: Blood pressure 95/53, pulse 67, respiratory rate 16 and unlabored. The patient 94% on room air. Height 5 feet 11 inches tall, weight 132.4 pounds, BMI calculated 18.5. GENERAL: Well-developed, well-nourished, well-hydrated, somewhat ill-appearing 81-year-old male, smells strongly of tobacco smoke, placing current pain score at 4/10. HEENT: Normocephalic, atraumatic. Pupils equal, round. He is wearing a mask in compliance with COVID-19 regulations and hospital policies. EXTREMITIES: Show clubbing, no cyanosis, no edema. MUSCULOSKELETAL: Lower extremity strength is diminished on the right when compared to left. This is noted with hip flexion, knee extension as pain is generated with this maneuver. Seated straight leg raising positive on the right. Supine straight leg raising positive on the right. MALLIKA test is negative. Well-healed surgical scar over the lumbar spine. ASSESSMENT: 1. Symptomatic lumbar radiculopathy. 2. Severe central canal stenosis of lumbar spine. 3. Neural foraminal stenosis of lumbar spine. 4. Displacement of lumbar intervertebral disk with radiculopathy. 5. Lumbosacral spondylosis with radiculopathy. 6. Facet arthropathy of lumbar spine. 7. Severe tobacco habituation. 8. Chronic intractable pain. PLAN: 1. The patient returns today in followup visit requesting to undergo lumbar epidural injection under fluoroscopic guidance The patient has recently been seen at the hospital for increasing back pain, right lower extremity pain, diagnosed with recurrent and chronic lumbar radiculopathy. He was provided today's appointment to undergo lumbar epidural injection. He had to discontinue his Plavix 7 days ago in preparation for the procedure today. He has done so. He has been advised risks and benefits of the procedure, states understood and wished to proceed. 2. The patient and I discussed again his ongoing smoking. We had discussed discontinuation of this activity at previous evaluations. The patient is unwilling to look towards this option of treatment of his chronic symptoms. [facility] [address] [place] [address] PAIN MANAGEMENT CONSULTATION Name: DAISY NOEL Room #: REG [facility] Niranjan#: [id number] Admission: 10/15/21 Attend Phys: Ba Degroot DO Discharge: Date of : 39 Report #: [id number] 3. The patient is going to be following up with radiology today to undergo a CT examination of the chest and low back. I will await those findings to review if there is information that will be beneficial for us in treating his chronic low back symptoms and right lower extremity pain. 4. We will see the patient back in followup visit on an as needed basis. We are hopeful the patient will once again see good and prolonged benefit with the epidural injection provided today. The patient can restart his Plavix this evening and continue his Plavix as directed. DESCRIPTION OF PROCEDURE: L5-S1 parasagittal epidural steroid injection under fluoroscopic guidance. After obtaining written consent, the patient was taken back to fluoroscopy suite, placed in prone position with pillow under abdomen to decrease lumbar lordosis. Skin overlying lumbosacral area prepped and draped in aseptic fashion. Lumbar intervertebral spaces were identified by AP fluoroscopy. Skin and subcutaneous tissue overlying target site injection anesthetized with 3 mL of 1% lidocaine. A 20-gauge 3-1/2 inch Tuohy needle advanced under fluoroscopic guidance towards the epidural space using a parasagittal approach. Epidural space identified using loss of resistance to air technique. After negative aspiration for heme or cerebrospinal fluid, 1 mL of Omnipaque injected. Lumbar epidurogram was confirmed using both AP and lateral fluoroscopy. After negative aspiration for heme or cerebrospinal fluid, 5 mL of a solution containing 2 mL 40 mg per mL 80 mg total triamcinolone along with 3 mL of lidocaine 1% injected slowly. Needle retracted skilled nursing flushed with 1 mL of 1% lidocaine then removed. A sterile bandage was placed over injection site. There were no new motor deficits present in lower extremity following procedure. The patient tolerated the procedure well, carefully escorted to recovery room in stable condition. No apparent complications. After meeting discharge criteria, the patient discharged home. <ELECTRONICALLY SIGNED> By: Ba Degroot DO 10/21/21 [id number] Ba Degroot DO /nt
== END | disposition home or self-care (01) ==
LOC: PAIN 08:14
PROVIDERS: ATTEND Anesthesiology Pain Medicine
DX: M51.16 Intervertebral disc disorders with radiculopathy, lumbar region (principal); M48.061 Spinal stenosis, lumbar region without neurogenic claudication; M47.27 Other spondylosis with radiculopathy, lumbosacral region; M47.26 Other spondylosis with radiculopathy, lumbar region; G89.29 Other chronic pain; I10 Essential (primary) hypertension; M19.90 Unspecified osteoarthritis, unspecified site; F17.210 Nicotine dependence, cigarettes, uncomplicated; Z98.890 Other specified postprocedural states; Z79.899 Other long term (current) drug therapy; Z88.8 Allergy status to other drugs, medicaments and biological substances